=== PATIENT | male | born 1975 | race Hispanic/Latino ===

== ENCOUNTER 2017-09-22 01:46 | Emergency (ER) | payer MEDICAID ==
[2017-09-22 02:14] VITALS: RESP 14
--- NOTE | 2017-09-22 03:03 | C.PDOC ---
History Of Present Illness 42 year old male with PMHx of chronic pain and anxiety followed up at [place] presents to the ED for evaluation. Patient was reportedly given an epidural injection yesterday and has been feeling intermittently dizzy since then. Patient also states feeling anxious after talking to his body specialist this evening over an eviction notice. Patient requests rest until this morning. Patient denies SI/HI, hallucinations. Time Seen by Provider: 09/22/17 02:27 Chief Complaint (Nursing): Dizziness/Lightheaded History Per: Patient History/Exam Limitations: other (poor historian) Onset/Duration Of Symptoms: Hrs Current Symptoms Are (Timing): Still Present Associated Symptoms Preceding Syncopal Episode: No Predromal Symptoms (Sudden Onset) Seizure Or Post-ictal Symptoms: None Fall Associated With With Symptoms: No Severity: None Recent travel outside of the [place]: No Additional History Per: Patient Past Medical History Reviewed: Historical Data, Nursing Documentation, Vital Signs Vital Signs: Last Vital Signs Temp 98.4 F 09/22/17 02:09 Pulse 76 09/22/17 02:09 Resp 14 09/22/17 02:09 BP 112/73 09/22/17 02:09 Pulse Ox 99 09/22/17 03:05 - Medical History PMH: Anxiety, Gastritis, Hypercholesterolemia Surgical History: Tonsillectomy - [facility] Procedures NAIL REMOVAL (02/16/14) Family History: States: Unknown Family Hx - Social History Hx Alcohol Use: No Hx Substance Use: No - Immunization History Hx Tetanus Toxoid Vaccination: No Hx Influenza Vaccination: No Hx Pneumococcal Vaccination: No Review Of Systems Constitutional: Negative for: Fever, Chills Cardiovascular: Negative for: Chest Pain Respiratory: Negative for: Shortness of Breath Gastrointestinal: Negative for: Nausea, Vomiting Skin: Negative for: Rash Psych: Positive for: Anxiety. Negative for: Depression, Suicidal ideation Physical Exam - Physical Exam Appears: Non-toxic, Other (anxious) Skin: Normal Color, Warm, Dry Head: Atraumatic, Normacephalic Eye(s): bilateral: Normal Inspection Oral Mucosa: Moist Neck: Normal ROM, Supple Chest: Symmetrical Cardiovascular: Rhythm Regular Respiratory: Normal Breath Sounds, No Rales, No Rhonchi, No Wheezing Gastrointestinal/Abdominal: Soft, No Tenderness, No Guarding, No Rebound Extremity: Normal ROM, No Tenderness, No Swelling Neurological/Psych: Oriented x3, Normal Speech Gait: Steady ED Course And Treatment O2 Sat by Pulse Oximetry: 99 (ON RA) Pulse Ox Interpretation: Normal Progress Note: Pt has been sleeping all night and in NAD,VSS. 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 - Scribe Statement The provider has reviewed the documentation as recorded by the Scribe Gaurav Perez All medical record entries made by the Scribe were at my direction and personally dictated by me. I have reviewed the chart and agree that the record accurately reflects my personal performance of the history, physical exam, medical decision making, and the department course for this patient. I have also personally directed, reviewed, and agree with the discharge instructions and disposition.
[2017-09-22 06:33] VITALS: BP 120/70; PULSE 70; TEMP 97.5; O2SAT 97
== END 2017-09-22 06:33 | disposition home or self-care (01) ==
LOC: C.ER 01:46
DX: F41.9 Anxiety disorder, unspecified (principal); G89.29 Other chronic pain

== ENCOUNTER 2018-06-26 08:45 | Emergency (ER) | payer MEDICAID ==
[2018-06-26 08:51] VITALS: BP 122/84; PULSE 82; RESP 20; TEMP 97.4; O2SAT 98
--- NOTE | 2018-06-26 09:04 | C.PDOC ---
History Of Present Illness 43 yr old male w/ hx of HLD, migraine CONNORS, anxiety p/w flu like symptoms. Pt notes symptoms for the past 4 days, associated with cough, congestion, mild sore throat. No trouble swallowing or change in phonation. Non-productive cough. Mild sinus pain. No CONNORS. No nausea or vomiting or abdominal pain. Mild body aches but no neck stiffness. No recent travel or sick contacts. No diarrhea, constipation or abdominal pain. No dysuria, urgency or frequency. No rashes. He denies any SI / HI, worsening anxiety or current depression. He denies any trauma or falls. He states he lives in a [facility] [place] [facility] and would not like any further help at this time. Time Seen by Provider: 06/26/18 09:04 Chief Complaint (Nursing): Flu-like Symptoms Past Medical History Vital Signs: Last Vital Signs Temp 97.4 F L 06/26/18 08:49 Pulse 82 06/26/18 08:49 Resp 20 06/26/18 08:49 BP 122/84 06/26/18 08:49 Pulse Ox 98 06/26/18 08:49 - Medical History PMH: Anxiety, Gastritis, Hypercholesterolemia Surgical History: Tonsillectomy - [facility] Procedures NAIL REMOVAL (02/16/14) Family History: States: Unknown Family Hx - Social History Hx Alcohol Use: No Hx Substance Use: No - Immunization History Hx Tetanus Toxoid Vaccination: No Hx Influenza Vaccination: No Hx Pneumococcal Vaccination: No Review Of Systems Constitutional: Negative for: Fever, Chills, Sweats Eyes: Negative for: Pain, Vision Change, Conjunctivae Inflammation ENT: Positive for: Nose Congestion. Negative for: Ear Pain, Ear Discharge, Nose Pain, Mouth Pain, Mouth Swelling, Throat Swelling Cardiovascular: Negative for: Chest Pain, Palpitations, Orthopnea, Paroxysmal Noc. Dyspnea Respiratory: Positive for: Cough. Negative for: Shortness of Breath, Hemoptysis, SOB with Excertion, Pleuritic Pain, Sputum Gastrointestinal: Negative for: Nausea, Vomiting, Abdominal Pain, Diarrhea, Constipation, Melena, Hematochezia, Hematemesis Genitourinary: Negative for: Dysuria, Frequency, Incontinence, Hematuria, Penile Discharge, Scrotal Pain Musculoskeletal: Negative for: Neck Pain, Shoulder Pain, Arm Pain, Back Pain, Hand Pain, Leg Pain Skin: Negative for: Rash, Lesions Neurological: Negative for: Weakness, Numbness, Incoordination, Change in Speech, Confusion, Seizures, Altered Mental Status, Headache Psych: Negative for: Anxiety, Depression, Psychosis, Suicidal ideation Physical Exam - Physical Exam Appears: Well, Non-toxic, No Acute Distress Skin: Normal Color, Warm Head: Atraumatic, Normacephalic Eye(s): bilateral: Normal Inspection, PERRL, EOMI Ear(s): Bilateral: Normal Nose: Normal, No Discharge, No Epistaxis, No Deformity, No Tenderness, No Septal Hematoma Oral Mucosa: Moist, No Dry Tongue: Normal Appearing, No Swelling, No Lesions, No Bite Lips: Normal Appearing Gingiva: Normal Appearing Throat: Normal, No Erythema, No Exudate Neck: Normal, Normal ROM, Supple, Other (no meningeal signs) Lymphatic: Normal Exam, No Adenopathy Chest: Symmetrical Cardiovascular: Rhythm Regular Respiratory: Normal Breath Sounds, No Decreased Breath Sounds, No Accessory Muscle Use, No Rales, No Rhonchi, No Stridor, No Wheezing Gastrointestinal/Abdominal: Normal Exam, Soft, No Tenderness Rectal: Normal Exam Back: Normal Inspection, No CVA Tenderness Male Genital: Normal Inspection Extremity: Normal ROM Extremity: Bilateral: Atraumatic Neurological/Psych: Oriented x3, Normal Speech, Normal Cognition Gait: Steady ED Course And Treatment O2 Sat by Pulse Oximetry: 98 Medical Decision Making Medical Decision Makin yr old male w/ hx of of hld, anxiety, migraine CONNORS p/w flu like symptoms. No meningeal signs. No vomiting or abd pain or chest pain or sob. No fever, vitals largely unremarkable. Pt in NAD, well appearing. No hot potatoe voice or oropharyngeal or adenopathy abnl noted. Likely viral uri vs flu vs strep throat. Will seek imaging and serologies. 1122 remains w/ out SI or HI, no depression xrays unremarkable pt in nad, protecting airway well no current connors negative flu, however given flu symptoms and high clinical suspicion, will rx. pt in NAD, agreeable to plan. Given return indications and f/u Disposition - Disposition Referrals: [facility] [Outside] [facility] [Outside] [facility] [Outside] Disposition: HOME/ ROUTINE Disposition Time: 11:28 Condition: GOOD Additional Instructions: GABRIEL CHERY, thank you for letting us take care of you today. Your provider was Henrry Najera and you were treated for POSSIBLE FLU LIKE SYMPTOMS. The emergency medical care you received today was directed at your acute symptoms. If you were prescribed any medication, please fill it and take as directed. It may take several days for your symptoms to resolve. Return to the Emergency Department if your symptoms worsen, do not improve, or if you have any other problems. Please contact your doctor or call one of the physicians/clinics you have been referred to that are listed on the Patient Visit Information form that is included in your discharge packet. Bring any paperwork you were given at discharge with you along with any medications you are taking to your follow up visit. Our treatment cannot replace ongoing medical care by a primary care provider outside of the emergency department. Thank you for allowing the [facility] team to be part of your care today. If you had an X-Ray or CT scan: A Radiologist will review the ED reading if any change in treatment is needed we will contact you. If you had a blood, urine, or wound culture: It will take several days for the results, if any change in treatment is needed we will contact you. If you had an STI test: It will take 48 hours for the results. Please call after 1 week if you have not heard back. Prescriptions: Oseltamivir Cap [Tamiflu] 75 mg PO BID 5 Days #10 cap Instructions: Flu, Adult (DC) Forms: [employer] (Somali) - Clinical Impression Clinical Impression: Influenza-like illness, Influenza
[2018-06-26 10:03] LABS: INFLUENZA A B NEGATIVE FOR FLU A/B (NEGATIVE)
--- NOTE | 2018-06-26 11:49 | RAD ---
Chest x-ray two views HISTORY: Flu-like symptoms. COMPARISON: None available. Findings: Prominent focal consolidative changes seen within the right infrahilar region which may represent focal infiltrate. Clinical correlation. Post treatment interval follow-up may be helpful if clinically indicated. Left lung is clear. Top normal heart size. Degenerative changes in the spine. Impression: Prominent focal consolidative changes seen within the right infrahilar region which may represent focal infiltrate. Clinical correlation. Post treatment interval follow-up may be helpful if clinically indicated. This case was placed in the PA review folder.
== END 2018-06-26 11:44 | disposition home or self-care (01) ==
LOC: C.ER 08:45
DX: J11.1 Influenza due to unidentified influenza virus with other respiratory manifestations (principal)

== ENCOUNTER 2018-07-02 07:42 | Emergency (ER) | payer MEDICAID ==
[2018-07-02] MEDS ORDERED: Sodium Chloride 0.9% 1,000 ML IV ONE (08:12)
[2018-07-02] MEDS ORDERED: Apap-Butalbital-Caffeine 325-50-40mg Tab PO STA (08:17)
[2018-07-02 08:28] LABS: BASO # 0.1 K/uL (0.0-0.2); BASO % 0.7 % (0.0-2.0); EOS # 0.3 K/uL (0.0-0.7); EOS % 3.6 % (0.0-4.0); LYMPH # 3.4 K/uL (1.0-4.3); LYMPH % 38.1 % (20.0-40.0); MEAN PLATELET VOLUME 9.5 fL (7.2-11.7); MONO # 0.7 K/uL (0.0-0.8); MONO % 7.6 % (0.0-10.0); NEUT # 4.5 K/uL (1.8-7.0); RBC 4.59 Mil/uL (4.40-5.90); RED CELL DISTRIBUTION WIDTH 12.6 % (11.5-14.5)
[2018-07-02 08:32] LABS: HEMOGLOBIN 13.8 g/dL (12.0-18.0); MEAN CELL VOLUME 91.1 fL (80.0-94.0)
[2018-07-02] MEDS ORDERED: Sodium Chloride 0.9% 1,000 ML ONE (08:46)
[2018-07-02] MEDS ORDERED: Apap-Butalbital-Caffeine 325-50-40mg Tab ONE (08:46)
[2018-07-02 08:57] LABS: ALB/GLOB RATIO 1.7 (1.0-2.1); ALBUMIN 4.4 g/dL (3.5-5.0); CALCIUM 9.7 mg/dl (8.6-10.4)
--- NOTE | 2018-07-02 09:18 | CT ---
Date of service: 07/02/2018 PROCEDURE: CT HEAD WITHOUT CONTRAST. HISTORY: R/O Bleed COMPARISON: None available. TECHNIQUE: Axial computed tomography images were obtained through the head/brain without intravenous contrast. Radiation dose: Total exam DLP = 1106.37 mGy-cm. This CT exam was performed using one or more of the following dose reduction techniques: Automated exposure control, adjustment of the mA and/or kV according to patient size, and/or use of iterative reconstruction technique. FINDINGS: HEMORRHAGE: No intracranial hemorrhage. BRAIN: No mass effect or edema. No atrophy or chronic microvascular ischemic changes. VENTRICLES: Unremarkable. No hydrocephalus. CALVARIUM: Unremarkable. PARANASAL SINUSES: Unremarkable as visualized. No significant inflammatory changes. MASTOID AIR CELLS: Unremarkable as visualized. No inflammatory changes. OTHER FINDINGS: None. IMPRESSION: Normal CT of the Head. No intracranial mass, hemorrhage or evidence of acute infarct.
--- NOTE | 2018-07-02 09:45 | C.PDOC ---
History Of Present Illness 43 yo male with PMH HLD, gastritis, and migraines c/o facial pain, nasal congestion and diarrhea. Pt notes his cough and congestion started a week ago, and he was evaluated in [facility] on 06/26/18. He was diagnosed initially with the flu and then later pneumonia for which he finished a coarse of tamiflu and zithromax. He started having diarrhea yesterday, 2 episodes today. Denies chest pain, SOB, abdominal pain, fever, visual changes or difficulty swallowing. Time Seen by Provider: 07/02/18 07:48 Chief Complaint (Nursing): Flu-like Symptoms Past Medical History Vital Signs: Last Vital Signs Temp 97.4 F L 07/02/18 08:03 Pulse 72 07/02/18 08:03 Resp 20 07/02/18 08:03 BP 112/70 07/02/18 08:03 Pulse Ox 98 07/02/18 08:03 - Medical History PMH: Anxiety, Gastritis, Hypercholesterolemia, Migraine Other PMH: Cervical herniated discs Surgical History: Tonsillectomy Other Surgeries: adnoids and tonsils - [facility] Procedures NAIL REMOVAL (02/16/14) Family History: States: Unknown Family Hx - Social History Hx Alcohol Use: Yes Hx Substance Use: No - Immunization History Hx Tetanus Toxoid Vaccination: (unk) Hx Influenza Vaccination: No Hx Pneumococcal Vaccination: (unk) Review Of Systems Except As Marked, All Systems Reviewed And Found Negative. ENT: Positive for: Nose Discharge Respiratory: Positive for: Cough Gastrointestinal: Positive for: Diarrhea Physical Exam - Physical Exam Appears: Well, Non-toxic, No Acute Distress Skin: Normal Color, Warm, Dry Head: Atraumatic, Normacephalic, Tenderness ((+) maxillary facial to tenderness) Eye(s): bilateral: Normal Inspection, PERRL, EOMI Ear(s): Bilateral: Normal Nose: Normal Oral Mucosa: Moist Throat: Normal, No Erythema, No Exudate Neck: Normal, Normal ROM, Supple Chest: Symmetrical Cardiovascular: Rhythm Regular Respiratory: Normal Breath Sounds, No Accessory Muscle Use Gastrointestinal/Abdominal: Normal Exam, Soft, No Tenderness Back: Normal Inspection Extremity: Normal ROM Gait: Steady ED Course And Treatment - Laboratory Results Result Diagrams: 07/02/18 08:20 07/02/18 08:20 Lab Results: Total Bilirubin 0.3 mg/dL (0.2-1.3) 07/02/18 08:20 AST 26 U/L (17-59) 07/02/18 08:20 ALT 11 U/L (21-72) L D 07/02/18 08:20 Alkaline Phosphatase 48 U/L (38-126) 07/02/18 08:20 Total Protein 7.1 g/dL (6.3-8.3) 07/02/18 08:20 Albumin 4.4 g/dL (3.5-5.0) 07/02/18 08:20 Globulin 2.7 gm/dL (2.2-3.9) 07/02/18 08:20 Albumin/Globulin Ratio 1.7 (1.0-2.1) 07/02/18 08:20 O2 Sat by Pulse Oximetry: 98 - Radiology CXR: Interpreted by Me, Viewed By Me CXR Interpretation: Yes: No Acute Disease Progress Note: PT was treated with Fiorecet, Imodium, and IVF. On re- evaluation, pt notes his headache feels better. Neck is supple. Afebrile. No SOB. Lungs CTA. Pts symptoms are indicative of sinusitis. DIscussed likely viral. Symptomatic treatment. Also discussed pt just finished couarse of abx and has diarrhea, instructed probiotics and follow up with PMD in 1-2 days. Case di scussed and pt was evaluated by Dr Orona. Disposition - Disposition Disposition: HOME/ ROUTINE Disposition Time: 09:35 Condition: STABLE Additional Instructions: You are diagnosed with sinusitis today. Acute viral sinusitis may be treated using pain relievers such as acetaminophen, decongestants, and salt water irrigation in the nose. Follow up with your PMD in 1-2 days. Return to ER if symptoms persist or worsen. Prescriptions: Acetaminophen/Butalbital/Caf [Fioricet] 1 tab PO BID PRN #10 tab PRN Reason: Headache Loratadine/Pseudoephedrine [Claritin-D 24 Hour Tablet] 1 each PO DAILY #10 tab.er.24h Instructions: Sinusitis, Adult (DC) Forms: [employer] (Egyptian) - Clinical Impression Clinical Impression: Sinusitis, Viral illness
[2018-07-02 10:02] VITALS: BP 104/66; PULSE 58; RESP 18; TEMP 97.8
[2018-07-02 10:07] VITALS: O2SAT 98
--- NOTE | 2018-07-02 16:47 | RAD ---
Date of service: 07/02/2018 HISTORY: h/o pna COMPARISON: 06/26/2018 TECHNIQUE: Chest PA and lateral views FINDINGS: LUNGS: No active pulmonary disease. PLEURA: No significant pleural effusion identified. No pneumothorax apparent. CARDIOVASCULAR: No aortic atherosclerotic calcification present. Normal cardiac size. No pulmonary vascular congestion. OSSEOUS STRUCTURES: No significant abnormalities. VISUALIZED UPPER ABDOMEN: Normal. OTHER FINDINGS: None. IMPRESSION: No active disease.
== END 2018-07-02 10:20 | disposition home or self-care (01) ==
LOC: C.ER 07:42
DX: J32.9 Chronic sinusitis, unspecified (principal); B34.9 Viral infection, unspecified
CPT/HCPCS: 70450; 71046; 80053; 85025; 96360; 99283; J7030

== ENCOUNTER 2018-07-08 20:27 | Emergency (ER) | payer MEDICAID ==
[2018-07-08 20:37] VITALS: TEMP 97.8
[2018-07-08] MEDS ORDERED: Apap-Butalbital-Caffeine 325-50-40mg Tab PO STA (21:40)
[2018-07-08] MEDS ORDERED: Apap-Butalbital-Caffeine 325-50-40mg Tab ONE (21:46)
--- NOTE | 2018-07-08 21:56 | C.PDOC ---
History Of Present Illness 43 y/o male pt presents to the ER c/o frontal headache for x1 week. Pt was seen in the ER on 07/02 for sinusitis and received fioricet and tylenol. Pt reports the fioricet has helped and is asking for a refill. Pt denies thunder clap headache and that the headache is not the worse that he has ever gotten. Pt also denies fever, neck pain and eye pain. Time Seen by Provider: 07/08/18 20:49 Chief Complaint (Nursing): Headache History Per: Patient History/Exam Limitations: no limitations Onset/Duration Of Symptoms: Days (x1 week) Current Symptoms Are (Timing): Still Present Past Medical History Reviewed: Historical Data, Nursing Documentation, Vital Signs Vital Signs: Last Vital Signs Temp 97.8 F 07/08/18 20:34 Pulse 68 07/08/18 20:34 Resp 16 07/08/18 20:34 BP 105/69 07/08/18 20:34 Pulse Ox 97 07/08/18 20:34 - Medical History PMH: Anxiety, Gastritis, Hypercholesterolemia, Migraine Surgical History: Tonsillectomy - [facility] Procedures NAIL REMOVAL (02/16/14) Family History: States: Unknown Family Hx - Social History Hx Alcohol Use: Yes Hx Substance Use: No - Immunization History Hx Tetanus Toxoid Vaccination: (unk) Hx Influenza Vaccination: No Hx Pneumococcal Vaccination: (unk) Review Of Systems Except As Marked, All Systems Reviewed And Found Negative. Constitutional: Negative for: Fever Eyes: Negative for: Pain Musculoskeletal: Negative for: Neck Pain Neurological: Positive for: Headache (frontal) Physical Exam - Physical Exam Appears: Non-toxic, No Acute Distress Skin: Warm, Dry Head: Atraumatic, Normacephalic, No Tenderness Eye(s): bilateral: PERRL, EOMI Ear(s): Bilateral: Normal Nose: Normal Oral Mucosa: Moist Throat: Normal Neck: Normal ROM, Trachea Midline, Supple Chest: Symmetrical Cardiovascular: Rhythm Regular Respiratory: Normal Breath Sounds, No Rales, No Rhonchi, No Wheezing Neurological/Psych: Oriented x3, Normal Speech, Normal Cognition, Normal Cranial Nerves, Normal Motor, Normal Sensation ED Course And Treatment O2 Sat by Pulse Oximetry: 97 (RA) Pulse Ox Interpretation: Normal Progress Note: Pt was given tylenol and refill for fioricet. Pt instructed to f/u with PMD in 1-2 days. 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 - Scribe Statement The provider has reviewed the documentation as recorded by the Yolanda Lawton Do All medical record entries made by the Scribe were at my direction and personally dictated by me. I have reviewed the chart and agree that the record accurately reflects my personal performance of the history, physical exam, medical decision making, and the department course for this patient. I have also personally directed, reviewed, and agree with the discharge instructions and d isposition.
[2018-07-08 22:09] VITALS: BP 96/64; PULSE 65; RESP 18
[2018-07-09 01:41] VITALS: O2SAT 97
== END 2018-07-08 22:23 | disposition home or self-care (01) ==
LOC: C.ER 20:27
DX: G43.909 Migraine, unspecified, not intractable, without status migrainosus (principal)

== ENCOUNTER 2018-07-10 14:49 | Emergency (ER) | payer MEDICAID ==
[2018-07-10 14:54] VITALS: BMI 26.4
[2018-07-10] MEDS ORDERED: Sodium Chloride 0.9% 1,000 ML IV ONE (15:21)
[2018-07-10 15:47] LABS: BASO % 0.4 % (0.0-2.0); EOS # 0.2 K/uL (0.0-0.7); EOS % 2.6 % (0.0-4.0); HEMOGLOBIN 14.6 g/dL (12.0-18.0); LYMPH # 1.1 K/uL (1.0-4.3); MEAN CELL VOLUME 92.9 fL (80.0-94.0); MEAN CORPUSCULAR HEMOGLOBIN 30.4 pg (27.0-31.0); MEAN CORPUSCULAR HGB CONC 32.7 g/dL (33.0-37.0); MEAN PLATELET VOLUME 9.4 fL (7.2-11.7); MONO # 0.5 K/uL (0.0-0.8); MONO % 7.1 % (0.0-10.0); NEUT # 5.2 K/uL (1.8-7.0); NEUT % 73.9 % (50.0-75.0); NRBC % 0.4 % (0.0-2.0); RBC 4.81 Mil/uL (4.40-5.90); RED CELL DISTRIBUTION WIDTH 13.4 % (11.5-14.5)
--- NOTE | 2018-07-10 15:50 | RAD ---
Date of service: 07/10/2018 PROCEDURE: Radiographs of the chest and abdomen (obstructive series) HISTORY: abd pain COMPARISON: Comparison is made with the previous chest x-ray dated 07/02/2018 TECHNIQUE: AP radiograph of the chest, with upright and supine radiographs of the abdomen. 3 views obtained. FINDINGS: CHEST: Lungs: Clear. Cardiovascular: Normal size heart. No pulmonary vascular congestion. No aortic atherosclerotic calcification present Pleura: No pleural fluid. No pneumothorax. Other findings: None. ABDOMEN AND PELVIS: Bowel: Unremarkable bowel gas pattern. No evidence of mechanical obstruction. Free air: None. Bones: Unremarkable. Other findings: None. IMPRESSION: Unremarkable radiographs of chest and abdomen. No evidence of mechanical bowel obstruction.
[2018-07-10] MEDS ORDERED: Atropine-Diphenoxylate 0.025-2.5 mg Tab PO STA (15:57)
[2018-07-10 16:04] LABS: ALB/GLOB RATIO 1.6 (1.0-2.1); ALBUMIN 4.6 g/dL (3.5-5.0); ALT/SGPT 10 U/L (21-72); AST/SGOT 48 U/L (17-59); BLOOD UREA NITROGEN 18 mg/dL (9-20); CALCIUM 8.8 mg/dl (8.6-10.4); GFR NON-AFRICAN AMERICAN 60; LIPASE 117 U/L (23-300)
[2018-07-10] MEDS ORDERED: Atropine-Diphenoxylate 0.025-2.5 mg Tab ONE (16:28)
--- NOTE | 2018-07-10 17:08 | C.PDOC ---
History Of Present Illness 43-year-old male presents from the homeless [facility] with complaints of watery diarrhea and abdominal cramping. Patient denies fever, nausea, vomiting, and urinary symptoms. Time Seen by Provider: 07/10/18 15:07 Chief Complaint (Nursing): Abdominal Pain History Per: Patient History/Exam Limitations: no limitations Onset/Duration Of Symptoms: Hrs Current Symptoms Are (Timing): Still Present Location Of Pain/Discomfort: Other (abdomen) Quality Of Discomfort: Cramping Associated Symptoms: Diarrhea (watery). denies: Fever, Chills, Nausea, Vomiting, Urinary Symptoms Past Medical History Reviewed: Historical Data, Nursing Documentation, Vital Signs Vital Signs: Last Vital Signs Temp 98.4 F 07/10/18 14:54 Pulse 89 07/10/18 14:54 Resp 18 07/10/18 14:54 BP 93/70 L 07/10/18 14:54 Pulse Ox 100 07/10/18 14:54 - Medical History PMH: Anxiety, Gastritis, Hypercholesterolemia, Migraine Surgical History: Tonsillectomy - [facility] Procedures NAIL REMOVAL (02/16/14) Family History: States: No Known Family Hx - Social History Hx Alcohol Use: Yes Hx Substance Use: No - Immunization History Hx Tetanus Toxoid Vaccination: (unk) Hx Influenza Vaccination: No Hx Pneumococcal Vaccination: (unk) Review Of Systems Except As Marked, All Systems Reviewed And Found Negative. Gastrointestinal: Positive for: Diarrhea Physical Exam - Physical Exam Appears: Non-toxic, No Acute Distress Skin: Normal Color, Warm, Dry Head: Atraumatic, Normacephalic Eye(s): bilateral: Normal Inspection, PERRL, EOMI Nose: Normal Oral Mucosa: Moist Neck: Normal, Supple Chest: Symmetrical, No Tenderness Cardiovascular: Rhythm Regular, No Murmur Respiratory: Normal Breath Sounds, No Rales, No Rhonchi, No Wheezing Gastrointestinal/Abdominal: Soft, No Tenderness, No Guarding, No Rebound Neurological/Psych: Oriented x3, Normal Speech, Normal Cognition ED Course And Treatment - Laboratory Results Result Diagrams: 07/10/18 15:43 07/10/18 15:43 Lab Results: Total Bilirubin 0.8 mg/dL (0.2-1.3) 07/10/18 15:43 AST 48 U/L (17-59) 07/10/18 15:43 ALT 10 U/L (21-72) L 07/10/18 15:43 Alkaline Phosphatase 35 U/L (38-126) L D 07/10/18 15:43 Total Protein 7.6 g/dL (6.3-8.3) 07/10/18 15:43 Albumin 4.6 g/dL (3.5-5.0) 07/10/18 15:43 Globulin 2.9 gm/dL (2.2-3.9) 07/10/18 15:43 Albumin/Globulin Ratio 1.6 (1.0-2.1) 07/10/18 15:43 Lipase 117 U/L (23-300) 07/10/18 15:43 O2 Sat by Pulse Oximetry: 100 (RA) Pulse Ox Interpretation: Normal Medical Decision Making Medical Decision Making: Plan: CMP Lipase CBC XR Obstructive Series Atropine 1tab PO NaCl IV Fluids Zofran 4mg IVP Assessment: Diarrhea Patient reports feeling better after treatment. Patient states he is scheduled to see his GI doctor this week, patient instructed to keep the appointment. Disposition - Disposition Disposition: HOME/ ROUTINE Disposition Time: 17:06 Condition: STABLE Additional Instructions: follow up with your gi doctor within 2 days call to make an appointment continue hydration return to ER if symptoms worsens or progress Prescriptions: Atropine/Diphenoxylate [Lonox 0.025 MG-2.5 MG] 1 tab PO QID #20 tab Ondansetron ODT [Zofran ODT] 4 mg PO TID PRN #12 odt PRN Reason: Nausea/Vomiting Instructions: Diarrhea in Adolescents and Adults Forms: [facility] (Upper Sorbian), General Discharge Instructions - Clinical Impression Clinical Impression: Diarrhea - Scribe Statement The provider has reviewed the documentation as recorded by the Scribe (Chris Almaguervi) Provider Attestation: All medical record entries made by the Scribe were at my direction and personally dictated by me. I have reviewed the chart and agree that the record accurately reflects my personal performance of the history, physical exam, medical decision making, and the department course for this patient. I have also personally directed, reviewed, and agree with the discharge instructions and disposition.
[2018-07-10 17:23] VITALS: BP 132/78; PULSE 74; RESP 17; TEMP 98.3
[2018-07-10 17:24] VITALS: O2SAT 100
== END 2018-07-10 17:23 | disposition home or self-care (01) ==
LOC: C.ER 14:49
DX: R19.7 Diarrhea, unspecified (principal)
CPT/HCPCS: 74022; 80053; 83690; 85025; 96374; 99283; J2405; J7030

== ENCOUNTER 2018-08-25 20:47 | Emergency (ER) | payer MEDICAID ==
[2018-08-25 20:48] VITALS: BMI 26.4
[2018-08-25 21:13] VITALS: O2SAT 99
--- NOTE | 2018-08-25 21:58 | C.PDOC ---
History Of Present Illness Patient presents with nasal congestion, headache, and sinus pressure, worse when bending down to tie shoe laces. Denies fever or chills. Speaking in complete sentences. Time Seen by Provider: 08/25/18 21:58 Chief Complaint (Nursing): Cough, Cold, Congestion History Per: Patient History/Exam Limitations: no limitations Onset/Duration Of Symptoms: Hrs Current Symptoms Are (Timing): Still Present Severity: Moderate Pain Scale Rating Of: 4 Recent travel outside of the [place]: No Past Medical History Reviewed: Historical Data, Nursing Documentation, Vital Signs Vital Signs: Last Vital Signs Temp 97.4 F L 08/25/18 21:02 Pulse 92 H 08/25/18 21:02 Resp 20 08/25/18 21:02 BP 113/82 08/25/18 21:02 Pulse Ox 99 08/25/18 21:02 Primary Care Provider: Non [facility] Provider, - Medical History PMH: Anxiety, Gastritis, Hypercholesterolemia, Migraine Surgical History: Tonsillectomy - [facility] Procedures NAIL REMOVAL (02/16/14) Family History: States: No Known Family Hx - Social History Hx Alcohol Use: Yes Hx Substance Use: No - Immunization History Hx Tetanus Toxoid Vaccination: (unk) Hx Influenza Vaccination: No Hx Pneumococcal Vaccination: (unk) Review Of Systems Constitutional: Negative for: Fever, Chills ENT: Positive for: Nose Congestion Cardiovascular: Negative for: Chest Pain, Palpitations Respiratory: Negative for: Cough, Shortness of Breath Gastrointestinal: Negative for: Nausea, Vomiting Neurological: Positive for: Headache. Negative for: Weakness, Numbness Physical Exam - Physical Exam Appears: Non-toxic Skin: Warm, Dry Head: Normacephalic, Tenderness (Frontal sinus) Eye(s): bilateral: Normal Inspection Ear(s): Bilateral: Normal Nose: Other (Mucosa congested) Oral Mucosa: Moist Throat: Normal, No Erythema, No Exudate Neck: Trachea Midline, Supple Chest: Symmetrical, No Tenderness Cardiovascular: Rhythm Regular Respiratory: No Rales, No Rhonchi, No Wheezing Gastrointestinal/Abdominal: Soft, No Tenderness Neurological/Psych: Oriented x3 ED Course And Treatment O2 Sat by Pulse Oximetry: 99 (Room air) Pulse Ox Interpretation: Normal Progress Note: Augmentin, robitussin, and prednisone administered. Reevaluation Time: 22:56 Reassessment Condition: Improved Disposition Counseled Patient/Family Regarding: Studies Performed, Diagnosis, Need For Followup, Rx Given - Disposition Disposition: HOME/ ROUTINE Disposition Time: 21:58 Condition: FAIR Additional Instructions: Please follow up with your doctor and return if symptoms recur Prescriptions: Amoxicillin/Clavulanate [Augmentin 875 MG-125 MG] 1 tab PO BID #14 tab Instructions: Sinusitis, Adult (DC), Sinus Headache (DC) Forms: [employer] (Amharic) - Clinical Impression Clinical Impression: Sinusitis - Scribe Statement The provider has reviewed the documentation as recorded by the Scribbridger Stein All medical record entries made by the Xuanibbridger were at my direction and personally dictated by me. I have reviewed the chart and agree that the record accurately reflects my personal performance of the history, physical exam, medical decision making, and the department course for this patient. I have also personally directed, reviewed, and agree with the discharge instructions and disposition.
[2018-08-25] MEDS ORDERED: Amoxicillin-Clav 875-125 mg Tab PO STA (22:24)
[2018-08-25] MEDS ORDERED: guaiFENesin 100 mg/5 ml Syrup UD PO STA (22:25)
[2018-08-25] MEDS ORDERED: guaiFENesin 100 mg/5 ml Syrup UD ONE (22:58)
[2018-08-25] MEDS ORDERED: Amoxicillin-Clav 875-125 mg Tab PO ONE (22:58)
[2018-08-25 23:10] VITALS: BP 122/79; PULSE 88; RESP 18; TEMP 98.3
== END 2018-08-25 23:13 | disposition home or self-care (01) ==
LOC: C.ER 20:47
DX: J32.9 Chronic sinusitis, unspecified (principal)